=== PATIENT | female | born 1950 | race Hispanic/Latino ===

== ENCOUNTER 2020-01-07 09:53 | Outpatient (CLI) | payer MEDICARE ==
--- NOTE | 2020-01-08 08:13 | Mammography Report ---
PERCUTANEOUS STEREOTACTIC-GUIDED LEFT BREAST BIOPSY WITH MARKER PLACEMENT INDICATION: Left breast calcifications. CONSENT: Technique, risks and alternatives were discussed with the patient and informed written conse nt obtained. PROCEDURE: The patient was placed in the prone position on the biopsy table. The calcifications in question in ken metcalf CC position of the left breast were targeted mammographically. Rental Sales Representative and stereo pair images were a cquired to generate the computer-derived coordinates for targeting. The skin overlying the chosen bio psy site were cleansed with Betadine. The skin and superficial soft tissues were anesthetized with a small amount of buffered 1% lidocaine. The deeper soft tissues were anesthetized with buffered 1% l idocaine with epinephrine. A small dermatotomy was created through which the biopsy device was placed. Pre and post fire stereo pair images were acquired to confirm appropriate needle trajectory. Using vacuum assistance, multiple core specimen samples were acquired. A post procedure stereo pair image suggested adequate sampling of the target. A post procedure specimen radiograph confirmed calcifications within core specimen ayad ples. A biopsy marker was deposited at the biopsy site, and appropriate biopsy marker deposition con firmed via a stereo pair image. Post biopsy imaging demonstrated the clip to be located just above the targeted calcifications with a significant amount of suspicious calcifications remaining. After discussion of these findings with ken metcalf patient, she agreed to return for repeat biopsy. She was positioned prone on the biopsy table in a similar fashion as before with a medial to lateral approach performed for the second biopsy. Multipl e core specimens samples were acquired and post procedure imaging suggested adequate sampling. Postpr ocedure specimen radiograph confirmed calcifications in the core samples. A biopsy marker was deposit ed at the site and appropriate biopsy marker deposition was confirmed via stereotactic pair imaging. Manual pressure was applied at the biopsy site to achieve hemostasis. The incision margins were appro ximated with Steri-Strips. Postprocedure care instructions were administered in both verbal and writt en forms. The patient voiced understanding and departed the [facility] in stable, satisfactory con dition. IMPRESSION Technically successful percutaneous stereotactic-guided left breast biopsy with marker placement. An addendum to this report will be added upon receipt of the final pathologic diagnosis. Signer Name: Fermín Champion MD Signed: 01/08/2020 8:08 AM Workstation Name: [id number]
== END 2020-01-07 09:54 | disposition home or self-care (01) ==
LOC: SPVWC 09:53
PROVIDERS: ATTEND Surgery
DX: R92.1 Mammographic calcification found on diagnostic imaging of breast (principal); R92.8 Other abnormal and inconclusive findings on diagnostic imaging of breast
CPT/HCPCS: 19081; 77065; 88305; A4648

== ENCOUNTER 2020-08-03 10:52 | Outpatient (CLI) | payer MEDICARE ==
--- NOTE | 2020-08-03 11:33 | Mammography Report ---
DIGITAL DIAGNOSTIC MAMMOGRAM WITH CAD CONVENTIONAL, 08/03/2020 CLINICAL INFORMATION / INDICATION: Follow-up postbiopsy. TECHNIQUE: Digital left mammographic imaging was performed. This examination was interpreted with the benefit of Computer-aided Detection analysis. COMPARISON: 12/17/2019 and 01/07/2020. FINDINGS: Breast Density: There are scattered areas of fibroglandular density. 2 biopsy clips in the left lateral breast with associated postbiopsy changes are again identified. Ad jacent calcifications in this region have not changed since the post biopsy images on 01/07/20. No ne w abnormality is seen. IMPRESSION: No significant interval change since 01/07/20. Follow up recommendation: Back to schedule. BI-RADS Category 2: Benign. A "normal" or negative report should not discourage follow up or biopsy of a clinically significant f inding. A written summary of these findings will be mailed to the patient. The patient will be entered into a mammography reporting system which will generate a reminder letter for the patient's next appointmen t at the appropriate interval. According to the [employer], yearly mammograms are recommended starting at age 40 and continuing as long as a woman is in good health. Breast MRI is recommended for women with an jeremy roximately 20-25% or greater lifetime risk of breast cancer, including women with a strong family his tory of breast or ovarian cancer and women who have been treated for Hodgkin's disease. Signer Name: Booker Pena MD Signed: 08/03/2020 11:28 AM Workstation Name: [id number]
== END 2020-08-03 10:53 | disposition home or self-care (01) ==
LOC: SPVWC 10:52
PROVIDERS: ATTEND Surgery
DX: R92.1 Mammographic calcification found on diagnostic imaging of breast (principal)

== ENCOUNTER 2020-12-07 13:38 | Outpatient (CLI) | payer MEDICARE ==
--- NOTE | 2020-12-07 15:28 | Mammography Report ---
DIGITAL SCREENING MAMMOGRAM WITH CAD, 12/07/2020 INDICATION: Routine screening mammography. TECHNIQUE: Digital bilateral 2D mammography was obtained in the craniocaudal and mediolateral obliq ue projections. This examination was interpreted with the benefit of Computer-Aided Detection analysi s. COMPARISON: 11/26/2018, 12/03/2019 FINDINGS: Breast Density: There are scattered areas of fibroglandular density. There is no evidence of dominant mass, suspicious calcifications or architectural distortion in eithe r breast. Not appearing nodularity remains right breast. Postbiopsy change left breast. IMPRESSION: Follow up recommendation: Routine yearly BI-RADS Category 2: Benign. A "normal" or negative report should not discourage follow up or biopsy of a clinically significant f inding. A written summary of these findings will be mailed to the patient. The patient will be entered into a mammography reporting system which will generate a reminder letter for the patient's next appointmen t at the appropriate interval. The [employer] recommends yearly mammograms starting at age 40 and continuing as l thao as a woman is in good health. Breast MRI is recommended for women with an approximate 20-25% or greater lifetime risk of breast cancer, including women with a strong family history of breast or ova christian cancer or who have been treated for Hodgkin's disease. Signer Name: Rolan Guillen MD Signed: 12/07/2020 3:24 PM Workstation Name: [id number]
== END 2020-12-07 13:39 | disposition home or self-care (01) ==
LOC: SPVWC 13:38
PROVIDERS: ATTEND Surgery
DX: Z12.31 Encounter for screening mammogram for malignant neoplasm of breast (principal)
CPT/HCPCS: 77067

== ENCOUNTER 2022-02-07 12:56 | Outpatient (CLI) | payer MEDICARE ==
--- NOTE | 2022-02-08 11:18 | Mammography Report ---
DIGITAL SCREENING MAMMOGRAM WITH CAD, 02/07/2022 CLINICAL INFORMATION / INDICATION: Routine screening mammography. TECHNIQUE: Digital bilateral 2D mammography was obtained in the craniocaudal and mediolateral oblique projections. This examination was interpreted with the benefit of Computer-Aided Detection analysis. COMPARISON: 12/07/2020 FINDINGS: Breast Density: There are scattered areas of fibroglandular density. No dominant mass, suspicious calcifications, or architectural distortion in either breast. Improvement in the focal asymmetry associated with postbiopsy changes and a postbiopsy clip in the up per-outer quadrant of the left breast. Stable nodular breast parenchymal pattern and several benign b ilateral diffuse calcifications. IMPRESSION: No mammographic evidence of malignancy. Follow up recommendation: Routine yearly screening mammogram. BI-RADS Category 2: BENIGN. A "normal" or negative report should not discourage follow up or biopsy of a clinically significant f inding. A written summary of these findings will be mailed to the patient. The patient will be entered into a mammography reporting system which will generate a reminder letter for the patient's next appointmen t at the appropriate interval. The [employer] recommends yearly mammograms starting at age 40 and continuing as l thao as a woman is in good health. Breast MRI is recommended for women with an approximate 20-25% or greater lifetime risk of breast cancer, including women with a strong family history of breast or ova christian cancer or who have been treated for Hodgkin's disease. Signer Name: Booker Ortiz MD Signed: 02/08/2022 11:14 AM Workstation Name: [id number]
== END 2022-02-07 12:57 | disposition home or self-care (01) ==
LOC: SPVWC 12:56
PROVIDERS: ATTEND Surgery
DX: Z12.31 Encounter for screening mammogram for malignant neoplasm of breast (principal)
CPT/HCPCS: 77067